=== PATIENT | male | born 1960 | race Two or more races ===

== ENCOUNTER 2023-06-04 03:27 | Emergency (ER) | payer SELFPAY ==
[~2023-06-04] VITALS: Ht 175.3 cm; Wt 70.0 kg
[2023-06-04 04:21] LABS: Basophils # (auto) 0.1 10 ^3/uL (0-0.2); Basophils % (auto) 0.9 % (0.0-2.0); Eosinophils # (auto) 0.1 10 ^3/uL (0-0.8); Eosinophils % (auto) 1.5 % (0.0-7.0); Hematocrit 37.6 % (41.0-53.0); Hemoglobin 12.4 g/dL (13.5-17.5); Lymphocytes # (auto) 1.9 10 ^3/uL (0.4-5.4); Lymphocytes % (auto) 19.4 % (10.0-50.0); Mean Corpuscular Hemoglobin 29.3 pg (28.0-32.0); Mean Corpuscular Volume 88.8 fL (80.0-100.0); Monocytes # (auto) 0.6 10 ^3/uL (0-1.3); Monocytes % (auto) 6.2 % (0.0-12.0); Neutrophils # (auto) 7.2 10 ^3/uL (1.6-8.6); Red Blood Cells 4.24 10^6/uL (4.5-5.90); Red Cell Distribution Width 16.4 % (11.8-14.3); White Blood Cell 9.9 10^3/uL (4.4-10.8)
[2023-06-04 04:36] LABS: Alanine Aminotransferase 33 U/L (7-40); Albumin 4.1 g/dL (3.2-4.8); Alkaline Phosphatase 166 U/L (46-116); Anion Gap 12 (5-15); Aspartate Aminotransferase 62 U/L (13-40); Bilirubin, Total 0.5 mg/dL (0.2-1.0); Blood Urea Nitrogen 6 mg/dL (9-23); Calcium 8.9 mg/dL (8.5-10.1); Carbon Dioxide 19 mmol/L (20-30); Chloride 106 mmol/L (98-107); Glucose 164 mg/dL (74-106); Potassium 3.4 mmol/L (3.5-5.1); Sodium 137 mmol/L (136-145); Total Protein 8.2 g/dL (5.7-8.2)
[2023-06-04 04:43] LABS: Blood Alcohol 321.6 mg/dL (<10)
[2023-06-04 04:55] VITALS: PULSE 82; RESP 20; O2SAT 95
[2023-06-04] MEDS ORDERED: levETIRAcetam 1000 mg/100ml 100 ML IV ONE (05:00)
[2023-06-04] MEDS ORDERED: SODIUM CHLORIDE 0.9% 2,000 ML IV ONE (05:30)
[2023-06-04] MEDS ORDERED: LACTATED RINGER'S 2,100 ML IV ONE (05:30)
[2023-06-04] MEDS ORDERED: metroNIDAZOLE 500MG/100ML 100 ML IV ONE (05:30)
[2023-06-04] MEDS ORDERED: PIPERACILLIN-TAZOB 3.375GM 100 ML IV ONE (05:30)
[2023-06-04 05:35] VITALS: BP 100/59; PULSE 79; RESP 18; TEMP 97.6; O2SAT 100
== END 2023-06-04 05:58 | disposition short-term general hospital (02) ==
LOC: ER 03:27 → EDBD 03:27 → ER 05:58
DX: S02.40CA Maxillary fracture, right side, initial encounter for closed fracture (principal); S02.40FA Zygomatic fracture, left side, initial encounter for closed fracture; S02.40EA Zygomatic fracture, right side, initial encounter for closed fracture; S06.6X0A Traumatic subarachnoid hemorrhage without loss of consciousness, initial encounter; K57.20 Diverticulitis of large intestine with perforation and abscess without bleeding; F10.129 Alcohol abuse with intoxication, unspecified; E87.6 Hypokalemia; R40.4 Transient alteration of awareness; Y04.2XXA Assault by strike against or bumped into by another person, initial encounter; Y93.89 Activity, other specified; Y92.59 Other trade areas as the place of occurrence of the external cause; Y99.8 Other external cause status; Y90.0 Blood alcohol level of less than 20 mg/100 ml
CPT/HCPCS: 36415; 70450; 70486; 71250; 72125; 74176; 80053; 80320; 85025; 93005; 96365; 96366; 96368; 99291; J1953; J2543; J3490